=== PATIENT | male | born 1965 | race Caucasian/White ===

== ENCOUNTER 2018-04-27 10:23 | Inpatient (IN) | payer MEDICAID ==
[~2018-04-27] VITALS: Ht 172.7 cm; Wt 98.4 kg
[2018-04-27] MEDS ORDERED: SODIUM CHLORIDE 0.9% 1,000 ML IV ONE (10:54)
[2018-04-27 11:16] LABS: BG BASE EXCESS -4.2 mmol/L (-2.0-2.0); BG CARBOXYHEMOGLOBIN 0.4 % (0.5-1.5); BG DEOXYHEMOGLOBIN 3.5 % (0.0-5.0); BG FRACTION INSPIRED OXYGEN 21; BG HCO3 ACT 19.4 mmol/L (22.0-26.0); BG METHEMOGLOBIN 0.2 % (0.0-1.5); BG OXYGEN SATURATION 96.5 % (92.0-98.5); BG OXYHEMOGLOBIN 95.9 % (94.0-97.0); BG PCO2 31.3 mmHg (35.0-45.0); BG PO2 91.5 mmHg (75.0-100.0); BG SAMPLE SITE RIGHT RADIAL; BG TOTAL HEMOGLOBIN 12.6 g/dL (12.0-18.0); BG VENT MODE ROOM AIR
[2018-04-27 12:01] LABS: BASOPHILS % 0.1 % (0.0-2.0); EOSINOPHILS % 0.5 % (0.0-5.0); HEMATOCRIT. 37.1 % (42.0-52.0); HEMOGLOBIN. 12.3 g/dL (14.0-18.0); LYMPHOCYTES % 12.9 % (20.0-50.0); MEAN CORPUSCULAR HEMOGLOBIN 35.7 pg (28.0-32.0); MEAN CORPUSCULAR VOLUME 107.7 fL (80.0-94.0); MEAN PLATELET VOLUME 7.6 fl (7.4-10.4); MONOCYTES % 11.7 % (2.0-8.0); NEUTROPHILS % 74.8 % (40.0-76.0); PLATELET 109 x1000/uL (130-400); RED BLOOD CELL COUNT 3.45 mill/uL (4.7-6.1); RED CELL DISTRIBUTION WIDTH 16.6 % (11.6-14.6)
[2018-04-27 12:05] LABS: CHLORIDE 104 mEq/L (98-107)
[2018-04-27 12:08] LABS: INR 1.2; PARTIAL THROMBOPLASTIN TIME 24.5 sec (23.4-31.0)
[2018-04-27 12:14] LABS: ETHANOL BLOOD < 10 mg/dL
[2018-04-27] MEDS ORDERED: GENTAMICIN 80MG PREMIX 100 ML IV ONE (12:15)
[2018-04-27] MEDS ORDERED: VANCOMYCIN 1 G PREMIX 200 ML IV SCH (12:15)
[2018-04-27 12:20] LABS: CREATINE KINASE 79 IU/L (39-308)
[2018-04-27] MEDS ORDERED: SODIUM CHLORIDE 0.9% 1000ML BAG (SEPSIS BOLUS) IV ONE (13:00)
[2018-04-27 13:23] LABS: BETA HYDROXYBUTYRATE 0.1 mMol/L (0.0-0.3)
[2018-04-27] MEDS ORDERED: LACTULOSE 20G/30ML UDC PO SCH ×2 (14:00)
[2018-04-27] MEDS ORDERED: DEXT 5%/0.45% NACL 1000ML 1,000 ML IV SCH (14:00)
[2018-04-27] MEDS ORDERED: IPRATROPIUM/ALBUTEROL 0.5-3(2.5)MG/3ML NEB HHN PRN (14:30)
[2018-04-27] MEDS ORDERED: ACETAMINOPHEN 325MG TABLET PO PRN (15:00)
[2018-04-27] MEDS ORDERED: DEXTROSE 50% WATER 50ML SYRINGE IV PRN (15:00)
[2018-04-27] MEDS ORDERED: MAGNESIUM/ALUMINUM HYDROXIDE/SIMETHICONE 30ML UDC PO PRN (15:00)
[2018-04-27] MEDS ORDERED: NITROGLYCERIN 0.4MG TABLET SL SL PRN (15:00)
[2018-04-27] MEDS ORDERED: DOCUSATE SODIUM 100MG CAPSULE PO PRN (15:00)
[2018-04-27] MEDS ORDERED: IPRATROPIUM/ALBUTEROL 0.5-3(2.5)MG/3ML NEB INH PRN (15:00)
[2018-04-27] MEDS ORDERED: GUAIFENESIN 200MG/10ML SUGAR FREE UDC PO PRN (15:00)
[2018-04-27] MEDS ORDERED: CLONIDINE 0.1MG TABLET PO PRN (15:00)
[2018-04-27] MEDS ORDERED: ONDANSETRON HCL 4MG/2ML INJ IV PRN (15:00)
[2018-04-27] MEDS: SEVELAMER CARBONATE 800 MG TABLET PO SCH (17:00)
[2018-04-27] MEDS ORDERED: HYDRALAZINE 20MG/ML VIAL IV PRN ×2 (18:00→20:30)
[2018-04-27 18:43] LABS: HEPATITIS B SURFACE ANTIGEN NEGATIVE
[2018-04-27 19:07] LABS: ETHANOL BLOOD < 10 mg/dL
[2018-04-27 19:09] LABS: HDL CHOLESTEROL 83 mg/dL (40-59)
[2018-04-27 19:10] LABS: LDL CHOLESTEROL 102 mg/dL (5-100)
[2018-04-27 19:12] LABS: HEPATITIS A AB IGM NEGATIVE (NEGATIVE)
[2018-04-27] MEDS ORDERED: VANCOMYCIN 1 G PREMIX 200 ML IV NR (22:00)
[2018-04-27] MEDS ORDERED: PIPERACILLIN/TAZ 3.375G PREMIX 50 ML IV SCH (23:00)
[2018-04-28] VITALS (20 sets, daily range): BP systolic 110–153; BP diastolic 56–95
[2018-04-28 01:10] LABS: *AMPHETAMINES SCREEN URINE NEGATIVE (NEGATIVE); *BARBITURATES SCREEN URINE NEGATIVE (NEGATIVE); *BENZODIAZEPINES SCREEN URINE NEGATIVE (NEGATIVE); *COCAINE SCREEN URINE NEGATIVE (NEGATIVE)
[2018-04-28 01:11] LABS: METHADONE URINE SCREEN NEGATIVE (NEGATIVE)
[2018-04-28 01:13] LABS: CANNABINOID URINE SCREEN NEGATIVE (NEGATIVE); OPIATES URINE SCREEN NEGATIVE (NEGATIVE); PHENCYCLIDINE URINE SCREEN NEGATIVE (NEGATIVE)
[2018-04-28] MEDS: LACTULOSE 20G/30ML UDC PO SCH ×6 (02:02→19:54)
[2018-04-28] MEDS: BLOOD SUGAR DIAGNOSTIC STRIP TEST SCH ×4 (05:48→21:20)
[2018-04-28 06:48] LABS: CHLORIDE 111 mEq/L (98-107)
[2018-04-28 06:54] LABS: PHOSPHORUS 4.7 mg/dL (2.5-4.9)
[2018-04-28 07:00] LABS: HEMOGLOBIN. 10.2 g/dL (14.0-18.0); MEAN CORPUSCULAR HEMOGLOBIN 36.3 pg (28.0-32.0); MEAN CORPUSCULAR VOLUME 107.3 fL (80.0-94.0); MEAN PLATELET VOLUME 7.5 fl (7.4-10.4); PLATELET 73 x1000/uL (130-400); RED BLOOD CELL COUNT 2.79 mill/uL (4.7-6.1)
[2018-04-28] MEDS: INSULIN LISPRO 100 UNITS/ML SUBCUT SCH ×4 (07:17→21:29)
[2018-04-28] MEDS: SEVELAMER CARBONATE 800 MG TABLET PO SCH ×3 (07:20→17:52)
[2018-04-28] MEDS ORDERED: PIPERACILLIN/TAZ 3.375G PREMIX 50 ML IV SCH (08:00)
[2018-04-28 08:25] LABS: CLARITY URINE CLEAR (CLEAR); COLOR URINE YELLOW (YELLOW); KETONES URINE NEGATIVE (NEGATIVE); LEUKOCYTE ESTERASE URINE NEGATIVE (NEGATIVE); NITRITE URINE NEGATIVE (NEGATIVE); OCCULT BLOOD URINE 3+ (NEGATIVE); PH URINE 5.5 (4.5-8.0); PROTEIN URINE NEGATIVE (NEGATIVE); SPECIFIC GRAVITY URINE 1.014 (1.005-1.030); UROBILINOGEN URINE 0.2 E.U./dL (0.2-1.0)
[2018-04-28] MEDS: FOLIC ACID/VITAMIN B COMP W-C TABLET PO SCH (11:47)
[2018-04-28 15:42] LABS: PLATELET ESTIMATE DECREASED
[2018-04-28] MEDS ORDERED: VANCOMYCIN 1 G PREMIX 200 ML IV NR (18:00)
[2018-04-28] MEDS: PIPERACILLIN/TAZ 3.375G PREMIX 50 ML IV SCH (19:54)
[2018-04-29] VITALS (11 sets, daily range): BP systolic 134–176; BP diastolic 81–98
[2018-04-29] MEDS: LACTULOSE 20G/30ML UDC PO SCH ×4 (00:08→12:27)
[2018-04-29] MEDS: PIPERACILLIN/TAZ 3.375G PREMIX 50 ML IV SCH ×2 (04:18→12:27)
[2018-04-29] MEDS: BLOOD SUGAR DIAGNOSTIC STRIP TEST SCH ×2 (07:03→11:50)
[2018-04-29] MEDS: INSULIN LISPRO 100 UNITS/ML SUBCUT SCH ×2 (07:20→12:28)
[2018-04-29] MEDS: FOLIC ACID/VITAMIN B COMP W-C TABLET PO SCH (08:01)
[2018-04-29] MEDS: SEVELAMER CARBONATE 800 MG TABLET PO SCH ×2 (08:01→12:27)
[2018-04-29] MEDS ORDERED: FAMOTIDINE 20MG TABLET PO SCH (09:00)
[2018-04-29] MEDS ORDERED: ENOXAPARIN 40MG/0.4ML SYR SUBCUT SCH (12:00)
[2018-04-29] MEDS ORDERED: EPOETIN ALFA 4000UNITS/ML VIAL SUBCUT SCH (21:00)
[2018-05-01 10:06] LABS: HIV SCREEN 4G Non Reactive (Non Reactive)
== END 2018-04-29 18:40 | disposition home or self-care (01) | DRG 279 ==
LOC: ER 10:36 → EDBD 12:51 → 3WST 12:51 → ENRESERV 23:38
PROVIDERS: ADMIT Internal Medicine; ATTEND Internal Medicine
PROC: 5A1D70Z Performance of Urinary Filtration, Intermittent, Less than 6 Hours Per Day (ICD-10-PCS; 2018-04-27)
PROC: 5A1D70Z Performance of Urinary Filtration, Intermittent, Less than 6 Hours Per Day (ICD-10-PCS; principal; 2018-04-29)
DX: K72.00 Acute and subacute hepatic failure without coma (principal); J96.00 Acute respiratory failure, unspecified whether with hypoxia or hypercapnia; E43 Unspecified severe protein-calorie malnutrition; G92 Toxic encephalopathy; K74.60 Unspecified cirrhosis of liver; I12.0 Hypertensive chronic kidney disease with stage 5 chronic kidney disease or end stage renal disease; E11.22 Type 2 diabetes mellitus with diabetic chronic kidney disease; D63.8 Anemia in other chronic diseases classified elsewhere; E03.9 Hypothyroidism, unspecified; N18.6 End stage renal disease; Z99.2 Dependence on renal dialysis; Z68.33 Body mass index [BMI] 33.0-33.9, adult
CPT/HCPCS: 36415; 36600; 71045; 73030; 76700; 80061; 80202; 80305; 80307; 80329; 82010; 82140; 82375; 82550; 82805; 82962; 83036; 83605; 83735; 83880; 84100; 84134; 84443; 84484; 86705; 86709; 86803; 87340; 87389; 93005; 93970; 96361; 96365; 96366; 96367; 96368; 96375; 97162; 97166; 99291; G0482; J0360; J1580; J1650; J1815; J2543; J3370; J7030; J7060